=== PATIENT | female | born 1935 | race Caucasian/White ===

== ENCOUNTER 2016-11-27 09:02 | Emergency (ER) | payer MEDICARE, BC ==
[~2016-11-27] VITALS: Ht 147.3 cm; Wt 56.7 kg
[2016-11-27] MEDS ORDERED: WARF2TAB57 PO ×2 (09:25)
[2016-11-27] MEDS ORDERED: LISI-603 PO (09:25)
[2016-11-27] MEDS ORDERED: LEVO50TA8 PO (09:25)
[2016-11-27] MEDS ORDERED: DIGO125T PO (09:25)
[2016-11-27] MEDS ORDERED: HYDR12.5 PO (09:25)
[2016-11-27] MEDS ORDERED: METO-306 PO (09:25)
[2016-11-27] MEDS ORDERED: TDAP DIPH,PERTUSS,TET VAC/PF 0.5 ML DISP.SYRIN IM ONE ×2 (09:30→09:43)
[2016-11-27 09:44] LABS: BASOPHILS % (AUTO) 0.1 % (0.0-2.0); EOSINOPHILS # (AUTO) 0.1 K/uL (0.0-0.7); EOSINOPHILS % (AUTO) 0.8 % (0.0-7.0); HEMATOCRIT 44.8 % (31.2-41.9); HEMOGLOBIN 15.2 g/dL (10.9-14.3); LYMPHOCYTES # (AUTO) 0.9 K/uL (20.0-40.0); LYMPHOCYTES % (AUTO) 13.1 % (20.5-51.5); MEAN CORPUSCULAR HEMOGLOBIN 33.2 uug (24.7-32.8); MEAN CORPUSCULAR HGB CONC 34 g/dL (32.3-35.6); MEAN CORPUSCULAR VOLUME 97.5 fL (75.5-95.3); MONOCYTES # (AUTO) 0.5 K/uL (2.0-10.0); MONOCYTES % (AUTO) 7.1 % (0.0-11.0); NEUTROPHILS # (AUTO) 5.4 K/uL (1.8-8.9); NEUTROPHILS % (AUTO) 78.9 % (38.5-71.5); PLATELET COUNT (AUTO) 122 K/uL (179-408); RED BLOOD CELL COUNT(AUTO) 4.59 MIL/uL (3.63-4.92); WHITE BLOOD COUNT (AUTO) 6.9 K/uL (3.8-11.8)
[2016-11-27] MEDS ORDERED: IV NORMAL SALINE 1000 ML BAG IV ONE (11:00)
[2016-11-27 11:11] LABS: CALCIUM 9.8 mg/dL (8.5-10.1); CREATININE 0.8 mg/dL (0.6-1.3); POTASSIUM 3.5 mmol/L (3.5-5.1)
[2016-11-27 11:16] LABS: ALBUMIN 3.9 g/dL (3.4-5.0); BILIRUBIN,DIRECT 0.3 mg/dL (0.0-0.2); BILIRUBIN,TOTAL 1.1 mg/dL (0.2-1.0)
--- NOTE | 2016-11-27 11:41 | NUR ---
Patient discharged to home in stable conditon. Written and verbal after care instructions given. Patient verbalizes understanding of instructions.PT WALKS IN STEADY GAIT ACCOMPANIED BY FAMILY MEMBER. PT AND FAMILY MEMBER UNDERSTAND THEY HAVE TO FOLLOW UP WITH MD REGARDING REVIEWING COUMADIN THERAPY. COPY OF ALL THE WORKS DONE IN ER PROVIDED TO PT AND FAMILY MEMBER.PT DENEIS ANY DIZZINEES, NAUSEA, SYS FEELS GOOD AND READY TO GO HOME,
[2016-11-27 11:43] VITALS: BP 123/74
== END 2016-11-27 11:44 | disposition home or self-care (01) ==
LOC: ER 09:02
DX: S01.112A Laceration without foreign body of left eyelid and periocular area, initial encounter (principal); S09.90XA Unspecified injury of head, initial encounter; I10 Essential (primary) hypertension; I25.10 Atherosclerotic heart disease of native coronary artery without angina pectoris; E03.9 Hypothyroidism, unspecified; E86.0 Dehydration; R51 Headache; Z79.01 Long term (current) use of anticoagulants; W01.0XXA Fall on same level from slipping, tripping and stumbling without subsequent striking against object, initial encounter; Y93.89 Activity, other specified; Y92.89 Other specified places as the place of occurrence of the external cause; Y99.8 Other external cause status
CPT/HCPCS: 36415; 70030-TC; 70450; 72125; 85025; 85610; 90715; A4663; J7030